=== PATIENT | male | born 1990 | race Caucasian/White ===

== ENCOUNTER 2020-09-15 10:36 | Outpatient (CLI) | payer OTHER, SELFPAY ==
--- NOTE | ~2020-09-15 | XR_ITS ---
EXAMINATION: XR skull min 4V DATE: 09/15/2020 10:57 INDICATION: Face pain. Headache. Bony protuberance of the mid forehead. TECHNIQUE: 4 views of the skull were obtained. COMPARISON: None. FINDINGS: Bone alignment is normal. No fracture. There is an osteoma at the outer table of the anteri or skull. The paranasal sinuses are normal. IMPRESSION: 1. 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 Reviewed, dictated and finalized at location A. IMPRESSION: 1. 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
== END 2020-09-15 10:37 | disposition home or self-care (01) ==
LOC: ANHIMG 10:41
PROVIDERS: PCP Physician Assistant; Visit Provider Physician Assistant
DX: R51.9 Headache, unspecified (principal)
CPT/HCPCS: 70260